=== PATIENT | male | born 1960 | race Caucasian/White ===

== ENCOUNTER → 2017-02-10 | Outpatient (CLI) | payer OTHER ==
--- NOTE | 2017-02-10 15:09 | RADIOLOGY REPORT (SQ) ---
EXAM DESCRIPTION: ANKLE RIGHT COMPLETE COMPLETED DATE/TIME: 02/10/2017 2:07 pm REASON FOR STUDY: PAIN IN RIGHT ANKLE AND JOINTS OF RIGHT FOOT M25.571 PAIN IN RIGHT ANKLE AND JOIN TS OF RIGHT FOOT COMPARISON: None. NUMBER OF VIEWS: Three views. TECHNIQUE: AP, lateral, and oblique radiographic images acquired of the right ankle. LIMITATIONS: None. FINDINGS: MINERALIZATION: Normal. BONES: No acute fracture or dislocation. Radiolucency in the medial talar dome. JOINTS: No effusions. SOFT TISSUES: No soft tissue swelling. No foreign body. OTHER: No other significant finding. Prominent plantar calcaneal spur. IMPRESSION: RADIOLUCENCY IN THE MEDIAL TALAR DOME, POSSIBLY AN OSTEOCHONDRAL DEFECT. RECOMMEND [facility] MRI. TECHNICAL DOCUMENTATION: JOB ID: [id number]- All Rights Reserved
== END ==
LOC: OD 13:40
PROVIDERS: ATTEND Family Medicine
DX: M25.571 Pain in right ankle and joints of right foot (principal)

== ENCOUNTER 2017-03-24 15:36 | Emergency (ER) | payer OTHER ==
--- NOTE | 2017-03-24 19:31 | ER Document Report ---
ED Hand/Wrist Injury - General Mode of Arrival: Ambulatory Information source: Patient TRAVEL OUTSIDE OF THE [place] IN LAST 30 DAYS: No - HPI Patient complains to provider of: Injury to left 5th digit Injury to: Small finger Onset: This afternoon Context: Other - see notes above <VIGNESH AJ - Last Filed: 03/24/17 21:37> <ALAN SANCHEZ - Last Filed: 03/25/17 04:53> - General Chief Complaint: Hand Injury Stated Complaint: LEFT PINKY PAIN, SWELLING Time Seen by Provider: 03/24/17 19:30 Notes: 56-year-old male presents to the ED complaining of left fifth digit injury that occurred earlier this afternoon. Patient reports that he went to the immediate care in [place], [place] where they performed an x-ray. Patient was told to come to the ED for further assessment. Patient explains that he dropped something in a cupboard and went to quickly grab it. When pulling his hand out of the cupboard, he caught his left fifth digit and believes that he dislocated it. ( VIGNESH AJ) - Related Data Allergies/Adverse Reactions: No Known Allergies Allergy (Unverified 03/24/17 20:57) Past Medical History - General Information source: Patient - Social History Smoking Status: Former Smoker Chew tobacco use (# tins/day): No Frequency of alcohol use: Occasional Drug Abuse: None Family History: Reviewed & Not Pertinent Patient has suicidal ideation: No Patient has homicidal ideation: No - Past Medical History Cardiac Medical History: Reports: Hx Hypercholesterolemia, Hx Hypertension Renal/ Medical History: Denies: Hx Peritoneal Dialysis Past Surgical History: Reports: Hx Orthopedic Surgery - back surg 2003 <VIGNESH AJ - Last Filed: 03/24/17 21:37> Review of Systems - Review of Systems Constitutional: No symptoms reported EENT: No symptoms reported Cardiovascular: No symptoms reported Respiratory: No symptoms reported Gastrointestinal: No symptoms reported Genitourinary: No symptoms reported Male Genitourinary: No symptoms reported Musculoskeletal: See HPI, Other - left fifth digit injury with associated pain Skin: No symptoms reported Hematologic/Lymphatic: No symptoms reported Neurological/Psychological: No symptoms reported -: Yes All other systems reviewed and negative <VIGNESH AJ - Last Filed: 03/24/17 21:37> Physical Exam - General General appearance: Alert In distress: None - HEENT Head: Normocephalic, Atraumatic Eyes: Normal Extraocular movements intact: Yes Pupils: PERRL - Respiratory Respiratory status: No respiratory distress - Cardiovascular Rhythm: Regular - Abdominal Inspection: Normal - Back Back: Normal - Extremities General upper extremity: Normal ROM. No: Normal inspection - see hand exam below General lower extremity: Normal inspection, Normal ROM Hand: Tender - PIP of left 5th digit, Deformity - Obvious deformity to the PIP joint of the left 5th digit., Swelling - PIP of left 5th digit, Other - Unable to extend distal left 5th digit. No: Normal - Neurological Neuro grossly intact: Yes Cognition: Normal Orientation: AAOx4 Bhavin Coma Scale Eye Opening: Spontaneous [place] Coma Scale Verbal: Oriented Bhavin Coma Scale Motor: Obeys Commands Bhavin Coma Scale Total: 15 Speech: Normal - Psychological Associated symptoms: Normal affect, Normal mood - Skin Skin Temperature: Warm Skin Moisture: Dry Skin Color: Normal <VIGNESH AJ - Last Filed: 03/24/17 21:37> Course <VIGNESH AJ - Last Filed: 03/24/17 21:37> - Diagnostic Test Radiology reviewed: Image reviewed, Reports reviewed <ALAN SANCHEZ - Last Filed: 03/25/17 04:53> - Re-evaluation Re-evalutation: 03/24/17 21:09 Patient updated on results and given a copy of his X-ray. (VIGNESH AJ) Patient is left-hand dominant. Presents with deformity of left pinky finger. Had been told at urgent care that it was dislocated. Finger does look dislocated and also fractured with likely avulsion due to the inability of the patient to extend his DIP. Reduced at bedside. X-ray ordered postreduction. Patient with fracture dislocation. Patient states that overall his finger looks better. Finger will be placed in hyperextension of the DIP. Patient is to follow-up with hand surgery. Understands agrees with plan. Stable for discharge. (ALAN SANCHEZ) - Vital Signs Vital signs: Temp Pulse Resp BP Pulse Ox 98.7 F 84 18 153/94 H 99 03/24/17 21:41 03/24/17 21:41 03/24/17 21:41 03/24/17 21:41 03/24/17 21:41 Procedures - Immobilization Left 5th digit Pre-Proc Neuro Vasc Exam: Normal Immobilizer type: Finger splint (Static) Performed by: RN Post-Proc Neuro Vasc Exam: Normal Alignment checked and good: Yes - Joint Reduction/Fracture Care Left 5th digit Consent obtained: Yes Conscious sedation: No Pre-procedure NV exam: Yes Fracture: Closed Post-procedure NV exam: Yes Post-reduction x-ray: Joint reduced Reduction attempts: 1 Complications: No <ALAN SANCHEZ - Last Filed: 03/25/17 04:53> Discharge <VIGNESH AJ - Last Filed: 03/24/17 21:37> <ALAN SANCHEZ - Last Filed: 03/25/17 04:53> - Discharge Clinical Impression: Dislocation, finger closed Finger fracture, left Qualifiers: Encounter type: initial encounter Finger: little finger Fracture type: closed Phalanx: proximal Fracture alignment: displaced Qualified Code(s): S62.617A - Displaced fracture of proximal phalanx of left little finger, initial encounter for closed fracture Condition: Stable Disposition: HOME, SELF-CARE Instructions: Finger Dislocation ([facility]), Avulsion Fracture ([facility]), Splint Precautions ([facility]), Temporary Splint ([facility]) Prescriptions: Oxycodone HCl/Acetaminophen [Percocet 5-325 mg Tablet] 1 - 2 tab PO TIDP PRN # 15 tablet PRN Reason: Referrals: DORY RODRIGUEZ DO [Primary Care Provider] - Follow up as needed DALI WINKLER DO [ACTIVE STAFF] - Follow up in 3-5 days Scribe Attestation: 03/25/17 04:53 I personally performed the services described in the documentation, reviewed and edited the documentation which was dictated to the scribe in my presence, and it accurately records my words and actions. (ALAN SANCHEZ) Scribe Documentation - Scribe Written by Nancy:: Nancy Lopez, [id number] acting as scribe for :: Rashmi <VIGNESH AJ - Last Filed: 03/24/17 21:37>
--- NOTE | 2017-03-24 20:37 | RADIOLOGY REPORT (SQ) ---
EXAM DESCRIPTION: HAND LEFT 3 VIEWS COMPLETED DATE/TIME: 03/24/2017 7:44 pm REASON FOR STUDY: evalaute injury of 5th digit COMPARISON: None. EXAM PARAMETERS: NUMBER OF VIEWS: Three views. TECHNIQUE: AP, lateral and oblique radiographic images acquired of the left hand. LIMITATIONS: None. FINDINGS: MINERALIZATION: Normal. BONES: 2.5 mm avulsion fracture from the palmar aspect of the middle phalanx at the level of the 5th PIP, there is also 3 mm of dorsal -lateral PIP joint displacement. . No other fracture or dislocati on. No worrisome bone lesions. JOINTS: No effusions. SOFT TISSUES: Mild soft tissue swelling. No foreign body. OTHER: No other significant finding. IMPRESSION: 2.5 mm avulsion fracture from the palmar aspect of the middle phalanx at the level of th e 5th PIP, there is also 3 mm of dorsal -lateral PIP joint displacement. TECHNICAL DOCUMENTATION: JOB ID: [id number] [employer]- All Rights Reserved
[2017-03-24] MEDS ORDERED: HYDROCODONE/ACETAMINOPHEN 5-325 MG 6 TAB/DSPK PO PRN (21:02)
[2017-03-24 21:42] VITALS: BP 153/94
== END 2017-03-24 21:43 | disposition home or self-care (01) ==
LOC: ER 15:36
PROC: 0PSVXZZ Reposition Left Finger Phalanx, External Approach (ICD-10-PCS; principal; 2017-03-24)
DX: S62.617A Displaced fracture of proximal phalanx of left little finger, initial encounter for closed fracture (principal); S63.259A Unspecified dislocation of unspecified finger, initial encounter; M79.645 Pain in left finger(s); M79.89 Other specified soft tissue disorders; Z87.891 Personal history of nicotine dependence; X58.XXXA Exposure to other specified factors, initial encounter
CPT/HCPCS: 99283

== ENCOUNTER → 2018-01-17 | Outpatient (CLI) | payer OTHER ==
--- NOTE | 2018-01-17 11:33 | RADIOLOGY REPORT (SQ) ---
EXAM DESCRIPTION: LUMBAR SPINE COMPLETE COMPLETED DATE/TIME: 01/17/2018 10:30 am REASON FOR STUDY: LUMBAR RADICULOPATHY M54.16 RADICULOPATHY, LUMBAR REGION COMPARISON: None. NUMBER OF VIEWS: Five views including obliques. TECHNIQUE: AP, lateral, oblique, and sacral radiographic images acquired of the lumbar spine. LIMITATIONS: None. FINDINGS: MINERALIZATION: Normal. SEGMENTATION: Normal. No transitional anatomy. ALIGNMENT: Minimal levoscoliosis. VERTEBRAE: Maintained height. No fracture or worrisome bone lesion. DISCS: Disc spaces are narrowed from L3-S1. Small marginal osteophytes are present. POSTERIOR ELEMENTS: Pedicles and facets are intact. No pars defect or posterior arch defects. HARDWARE: None in the spine. PARASPINAL SOFT TISSUES: Normal. PELVIS: Intact as visualized. No fractures or worrisome bone lesions. SI joints intact. OTHER: No other significant finding. IMPRESSION: Degenerative disc disease and mild spondylosis. TECHNICAL DOCUMENTATION: JOB ID: [id number] [employer]- All Rights Reserved Reading location - IP/workstation name: [email or web address]
== END ==
LOC: OD 09:35
PROVIDERS: ATTEND Family Medicine
DX: M51.16 Intervertebral disc disorders with radiculopathy, lumbar region (principal)
CPT/HCPCS: 72110

== ENCOUNTER 2018-07-10 15:42 | Emergency (ER) | payer OTHER ==
--- NOTE | 2018-07-10 16:09 | ER Document Report ---
ED Medical Screen (RME) - General Chief Complaint: Low Back Pain Stated Complaint: LEG/FOOT PAIN/NUMBNESS Time Seen by Provider: 07/10/18 15:48 TRAVEL OUTSIDE OF THE [place] IN LAST 30 DAYS: No - HPI Patient complains to provider of: leg numbness Onset: Other - 58-year-old man who presents with complaint of left leg numbness. He has a history of a discectomy in the past. Has now numbness on the lateral aspect of his left leg from the middle of the foot and toes all the way up the leg with then tingling posteriorly up the hamstring. Has seen a spine surgeon before for a different issue but this is a new deficits since yesterday. Is not gotten any better with time. Denies any trauma, denies any urinary retention, denies any fevers or chills or bowel incontinence. - Related Data Allergies/Adverse Reactions: No Known Allergies Allergy (Unverified 03/24/17 20:57) Past Medical History - Social History Chew tobacco use (# tins/day): No Frequency of alcohol use: Occasional Drug Abuse: None - Past Medical History Cardiac Medical History: Reports: Hx Hypercholesterolemia, Hx Hypertension Renal/ Medical History: Denies: Hx Peritoneal Dialysis Past Surgical History: Reports: Hx Orthopedic Surgery - back surg 2004, hand, Hx Tonsillectomy Physical Exam - Vital signs Vitals: Temp Pulse Resp BP Pulse Ox 98.5 F 103 H 20 167/76 H 100 07/10/18 15:56 07/10/18 15:56 07/10/18 15:56 07/10/18 15:56 07/10/18 15:56 Course - Re-evaluation Re-evalutation: 07/10/18 16:09 Numbness and tingling in the L5-S1 distribution, new hard neuro deficit. Will obtain MRI.I have greeted and performed a rapid initial assessment of this patient. A comprehensive ED assessment and evaluation of the patient, analysis of test results and completion of the medical decision making process will be conducted by additional ED providers - Vital Signs Vital signs: Temp Pulse Resp BP Pulse Ox 98.5 F 103 H 20 167/76 H 100 07/10/18 15:56 07/10/18 15:56 07/10/18 15:56 07/10/18 15:56 10/21/18 15:56 Doctor's Discharge - Discharge Referrals: DORY RODRIUGEZ, [Primary Care Provider] - Follow up as needed
[2018-07-10] MEDS ORDERED: MORPHINE SULFATE 10 MG/ML INJ IM ONE (17:42)
--- NOTE | 2018-07-10 17:44 | ER Document Report ---
ED General - General Chief Complaint: Low Back Pain Stated Complaint: LEG/FOOT PAIN/NUMBNESS Time Seen by Provider: 07/10/18 15:48 Mode of Arrival: Ambulatory Information source: [facility], [facility] Records Notes: 58-year-old male with hypertension, hyperlipidemia, chronic back pain presents with complaint of increasing left lower back pain with new numbness to the lateral aspect of his left foot. Patient states that he is chronically in pain but the pain has worsened over the last 3 days. He states that he does experience chronic numbness of his left outer leg and left second and third toes but since yesterday has now developed numbness on the lateral aspect of the left foot. He denies any new injury, saddle anesthesia, urinary itching, fecal incontinence, fever, history of IV drug use. TRAVEL OUTSIDE OF THE [place] IN LAST 30 DAYS: No - Related Data Allergies/Adverse Reactions: No Known Allergies Allergy (Unverified 03/24/17 20:57) Past Medical History - General Information source: Patient, [facility] Records - Social History Smoking Status: Former Smoker Chew tobacco use (# tins/day): No Frequency of alcohol use: Occasional Drug Abuse: None Lives with: Spouse/Significant other Family History: Reviewed & Not Pertinent Patient has suicidal ideation: No Patient has homicidal ideation: No - Past Medical History Cardiac Medical History: Reports: Hx Hypercholesterolemia, Hx Hypertension Renal/ Medical History: Denies: Hx Peritoneal Dialysis Past Surgical History: Reports: Hx Orthopedic Surgery - back surg 2004, hand, Hx Tonsillectomy Review of Systems - Review of Systems Constitutional: denies: Fever, Weakness, Recent illness EENT: denies: Blurred vision, Difficulty swallowing Cardiovascular: denies: Chest pain, Dizziness, Lightheaded Respiratory: denies: Short of breath Gastrointestinal: denies: Nausea, Vomiting Genitourinary: denies: Dysuria, Flank pain Male Genitourinary: No symptoms reported Musculoskeletal: Back pain Skin: denies: Rash Hematologic/Lymphatic: denies: Easy bleeding Neurological/Psychological: Numbness. denies: Weakness, Gait changes, Lost consciousness, Headaches -: Yes All other systems reviewed and negative Physical Exam - Vital signs Vitals: Temp Pulse Resp BP Pulse Ox 98.5 F 103 H 20 167/76 H 100 07/10/18 15:56 07/10/18 15:56 07/10/18 15:56 07/10/18 15:56 07/10/18 15:56 - Notes Notes: PHYSICAL EXAMINATION: GENERAL: Well-appearing, well-nourished and in no acute distress. HEAD: Atraumatic, normocephalic. EYES: Pupils equal round and reactive to light, extraocular movements intact, sclera anicteric, conjunctiva are normal. ENT: Nares patent, oropharynx clear without exudates. Moist mucous membranes. NECK: Normal range of motion, supple without lymphadenopathy LUNGS: Breath sounds clear to auscultation bilaterally and equal. No wheezes rales or rhonchi. HEART: Regular rate and rhythm without murmurs ABDOMEN: Soft, nontender, nondistended abdomen. No guarding, no rebound. No masses appreciated. Musculoskeletal: Normal range of motion, no pitting or edema. No cyanosis. Neuro exam NEUROLOGICAL: Cranial nerves grossly intact. Normal speech, normal gait. Normal sensory, motor exams.Mental status; alert and oriented x3. Cranial nerves II through XII intact. Sensation intact to sharp/dull differentiation in all extremities. Motor; normal tone. No abnormal movements appreciated. No pronator drift. Strength tested and 5/5 in bilateral wrist flexion/extension , elbow flexion/extension, shoulder abduction, straight leg raise, knee flexion/ extension, ankle dorsiflexion/plantar flexion. Patient ambulates with a steady gait. Coordination; no ataxia. Finger to nose and heel to cote testing intact bilaterally.Reflexes; brachial radialis, biceps, and patellar reflexes within normal limits and symmetric bilaterally. Babinski with downgoing toes bilaterally. PSYCH: Normal mood, normal affect. SKIN: Warm, Dry, normal turgor, no rashes or lesions noted. Course - Re-evaluation Re-evalutation: 07/10/18 19:45 Presentation of a well appearing patient complaining of acute on chronic back pain. No rapid progression of symptoms, systemic symptoms including fevers, chills, weight loss, history of recent bacterial infection, bilateral symptoms, weakness, difficulty walking, urinary retention or bowel incontinence, personal history of cancer, immunosuppression, diabetes, known AAA, or history of IV drug use. Exam is without point tenderness over vertebral bodies, pulsatile abdominal mass, and patient has symmetric and intact lower extremity strength, sensation, and reflexes without clonus. 2+ symmetric medial malleolar and dorsalis pedis pulses Based on history and physical, I have a very low suspicion of a concerning etiology of pain including epidural compression syndrome, spinal infection, cauda equina, transverse myelitis, malignancy, abdominal aortic aneurysm, renal colic, acute lower extremity . Due to absence of concerning risk factors in history and physical as well as absence of rapidly progressive, severe, or bilateral symptoms, will defer imaging at this point. Plan to manage conservatively with outpatient analgesia, analgesia, and physical therapy. - Acetaminophen 650 q 4 + ibuprofen 600 q 6 - Continue normal daily activities as tolerated by pain - Provide with standard musculoskeletal back pain exercise instructions - Instruct to follow up with primary care provider if symptoms not improving - Provide careful return precautions and concerning symptoms to watch for. 07/12/18 12:34 - Vital Signs Vital signs: Temp Pulse Resp BP Pulse Ox 98.4 F 94 18 168/95 H 99 07/10/18 20:00 07/10/18 20:00 07/10/18 20:00 07/10/18 20:00 07/10/18 20:00 - Diagnostic Test Radiology reviewed: Image reviewed, Reports reviewed Discharge - Discharge Clinical Impression: Elevated blood pressure reading, Left fifth toe numbness Low back pain Qualifiers: Chronicity: chronic Back pain laterality: left Sciatica presence: with sciatica Sciatica laterality: sciatica of left side Qualified Code(s): M54.42 - Lumbago with sciatica, left side Degenerative disc disease Qualifiers: Spinal region: lumbosacral Qualified Code(s): M51.37 - Other intervertebral disc degeneration, lumbosacral region Condition: Good Disposition: HOME, SELF-CARE Instructions: Low Back Pain ([facility]) Additional Instructions: You have been seen in the Emergency Department (ED) today for back pain. Your workup and exam have not shown any acute abnormalities and you are likely suffering from muscle strain or possible problems with your discs, but there is no treatment that will fix your symptoms at this time. Please take the naproxen that has been prescribed as directed. You should also purchase a local lidocaine cream such as "aspercreme with lidocaine" and use per bottle instructions to the affected area. Apply heat to the area as often as you are able. Continue to keep active and avoid prolonged periods of bed rest. Please follow up with your doctor as soon as possible regarding today's ED visit and your back pain. Return to the ED for worsening back pain, fever, weakness or numbness of either leg, or if you develop either (1) an inability to urinate or have bowel movements, or (2) loss of your ability to control your bathroom functions (if you start having "accidents"), or if you develop other new symptoms that concern you.concern you. Prescriptions: Hydrocodone/Acetaminophen [[place] 5-325 mg Tablet] 1 tab PO Q6H #12 tablet Prednisone [Deltasone 20 mg Tablet] 3 tab PO DAILY 5 Days #15 tablet Referrals: DORY RODRIGUEZ DO [Primary Care Provider] - Follow up as needed
--- NOTE | 2018-07-10 17:47 | RADIOLOGY REPORT (SQ) ---
EXAM DESCRIPTION: MRI LUMBAR SPINE WITHOUT COMPLETED DATE/TIME: 07/10/2018 5:11 pm REASON FOR STUDY: numbness left leg- L5 S1 distribution COMPARISON: Lumbar spine plain films 01/17/2018 TECHNIQUE: Sagittal and Axial imaging includes T1, T2, STIR and gradient echo sequences. Coronal T2/ HASTE imaging. LIMITATIONS: None FINDINGS: VISUALIZED UPPER ABDOMEN: Limited evaluation. No acute or suspicious findings suggested. SEGMENTATION: No transitional anatomy. The lowest well-developed disc space is labeled L5-S1. ALIGNMENT: Anatomic. VERTEBRAE: Intact. BONE MARROW: Normal. No marrow replacement or reactive changes. DISC SIGNAL: Decreased disc space height at L4-5 and L5-S1. Diffuse decreased T2 weighted interverte bral lumbar disc signal. POSTERIOR ELEMENTS: Generally intact. No pars defect evident. HARDWARE: Minimal ferromagnetic artifact lower lumbar soft tissues CORD AND CONUS: Normal in size and signal intensity. Conus at the L2 level. SOFT TISSUES: No aortic aneurysm seen. No bulky retroperitoneal adenopathy or mass. No paraspinal mas s or fluid. T11-12: At the upper edge of the field of view. Broad diffuse posterior disc bulging is present wit h moderate bilateral facet and ligament hypertrophy. Mild central canal stenosis. No significant fo raminal narrowing. T12-L1: Unremarkable L1-L2: No central or foraminal stenosis. Mild bilateral facet arthropathy. L2-L3: Moderate central canal stenosis results from broad diffuse posterior disc bulging and moderate bilateral facet and ligament hypertrophy. Mild mild right foraminal narrowing. Moderate left ronda inal narrowing. L3-L4: Mild central canal stenosis results from broad diffuse posterior disc bulging and moderate aleja ateral facet and ligament hypertrophy. Mild bilateral inferior foraminal narrowing. L4-L5: Mild central canal stenosis results from broad diffuse posterior disc bulging and moderate aleja ateral facet and ligament hypertrophy. Moderate right, mild left foraminal narrowing. L5-S1: Broad diffuse posterior disc bulge and mild bilateral facet and ligament hypertrophy is presen t. Moderate bilateral foraminal narrowing without definite exiting L5 nerve root impingement. SACRUM: Visualized upper sacrum intact. OTHER: No other significant findings. IMPRESSION: Diffuse degenerative changes as above TECHNICAL DOCUMENTATION: JOB ID: [id number]- All Rights Reserved Reading location - IP/workstation name: [email or web address]
[2018-07-10] MEDS ORDERED: PREDNISONE 20 MG TABLET PO ONE (19:45)
[2018-07-10 20:02] VITALS: BP 168/95
== END 2018-07-10 20:02 | disposition home or self-care (01) ==
LOC: ER 15:42
DX: M54.42 Lumbago with sciatica, left side (principal); M51.37 Other intervertebral disc degeneration, lumbosacral region; I10 Essential (primary) hypertension; R20.0 Anesthesia of skin; E78.5 Hyperlipidemia, unspecified; G89.29 Other chronic pain; Z87.891 Personal history of nicotine dependence
CPT/HCPCS: 99284; 96372; 72148; J2270; J7512

== ENCOUNTER → 2019-04-13 | Outpatient (CLI) | payer OTHER ==
--- NOTE | 2019-04-13 10:24 | RADIOLOGY REPORT (SQ) ---
EXAM DESCRIPTION: HIP LEFT AP/LATERAL COMPLETED DATE/TIME: 04/13/2019 9:23 am REASON FOR STUDY: PAIN IN LEFT HIP M25.552 PAIN IN LEFT HIP COMPARISON: None. NUMBER OF VIEWS: Two views. TECHNIQUE: AP pelvis and additional frog-leg view of the left hip. LIMITATIONS: None. FINDINGS: MINERALIZATION: Normal. LEFT HIP: No fracture or dislocation. Mild joint space narrowing with small osteophytes. No worriso me bone lesions. RIGHT HIP: No fracture or dislocation. Mild joint space narrowing with small osteophytes. No worris ome bone lesions. PUBIS AND ISCHIUM: No fracture. PELVIS: No fracture. SACRUM: No fracture or dislocation. No worrisome bone lesions. LOWER LUMBAR SPINE: No fracture or dislocation. No worrisome bone lesions. Degenerative disc disease . SOFT TISSUES: No findings. OTHER: No other significant finding. IMPRESSION: DEGENERATIVE CHANGES. NO RADIOGRAPHIC EVIDENCE OF ACUTE INJURY. TECHNICAL DOCUMENTATION: JOB ID: [id number] [employer]- All Rights Reserved Reading location - IP/workstation name: [email or web address]
== END ==
LOC: OD 09:00
PROVIDERS: ATTEND Family Medicine
DX: M25.552 Pain in left hip (principal)

== ENCOUNTER 2019-05-29 09:33 | Observation (INO) | payer OTHER ==
[2019-05-29] MEDS ORDERED: ADENOSINE INJ/PF 6 MG/2 ML SDV IV ONE (09:46)
[2019-05-29] MEDS ORDERED: ASPIRIN 81 MG TABLET, CHEWABLE PO ONE (09:53)
[2019-05-29] MEDS ORDERED: DILTIAZEM HCL INJ 25 MG/5 ML VIAL IV ONE (09:54)
--- NOTE | 2019-05-29 09:59 | ER Document Report ---
ED Cardiac - General Chief Complaint: Chest Tightness Stated Complaint: CHEST TIGHTNESS Time Seen by Provider: 05/29/19 09:53 Primary Care Provider: DORY RODRIGUEZ DO [Primary Care Provider] - Follow up as needed Notes: History of Present Illness Chief Complaint: [Palpitation History obtained from patient 59 years old male with a history of hypertension, hyperlipidemia, remote history of SVT, presents today with sudden onset of rapid heartbeat with a sensation of palpitation. It happened just prior to arrival. He also had a large cup of coffee prior to that. Denies any smoking. Diaphoretic, denies any chest pain. Denies any shortness of breath. But had a sensation of dizziness and lightheadedness. Was going on for the last 1 hour on and off. Denies any fever chills or other constitutional symptoms. Symptoms began: Today Onset: Gradual Timing: Constant, now gone Quality: "pain" Intensity: Moderate Location: Substernal Radiation: None Migration: None Aggravating factors: None Relieving factors: None Major PE risk factors: None Major aortic dissection risk factors: None Review of Systems: All other systems negative as reviewed. CONSTITUTIONAL No fever, No chills, No sweats. EYES No eye pain. ENT No URI symptoms, No sore throat, No ear pain. CARDIOVASCULAR + chest pain, No palpitations, No edema. RESPIRATORY No Cough, No SOB, No wheezing. GASTROINTESTINAL No abdominal pain, No nausea, No diarrhea, No vomiting, No GI Bleeding. GENITOURINARY No UTI symptoms. MUSCULOSKELETAL No back pain, No calf swelling, No calf pain. SKIN No Rash. NEUROLOGIC No Headache Physical Exam CONSTITUTIONAL Vital signs reviewed, Patient appears comfortable, Alert and oriented X 3, Normal stature. Diaphoretic. HEAD Atraumatic, Normocephalic. EYES Eyes are normal to inspection, No discharge from eyes, Extraocular muscles intact, Sclera are normal, Conjunctiva are normal. ENT Ears normal to inspection, Nose examination normal, Posterior pharynx normal, Mouth normal to inspection. NECK Normal ROM, No jugular venous distention, No meningeal signs, no carotid bruit. RESPIRATORY CHEST Chest is nontender, Breath sounds normal, No respiratory distress. CARDIOVASCULAR RRR, No murmurs, Normal S1 S2, No rub, No gallop. ABDOMEN Abdomen is nontender, No pulsatile masses, No other masses, Bowel sounds normal, No distension, No peritoneal signs, No hernias. BACK There is no CVA Tenderness, There is no tenderness to palpation, Normal inspection. UPPER EXTREMITY Inspection normal, No cyanosis, No clubbing, No edema, 2+ radial pulses. LOWER EXTREMITY Inspection normal, No cyanosis, No clubbing, No edema, No calf tenderness, 2+ femoral pulses. NEURO No focal motor deficits, No focal sensory deficits, Speech normal. SKIN Skin is warm, Skin is dry, Skin is normal color. LYMPHATIC No adenopathy in neck. PSYCHIATRIC Normal affect. TRAVEL OUTSIDE OF THE [place] IN LAST 30 DAYS: No - HPI Patient complains to provider of: Palpitations - Dictated - Related Data Allergies/Adverse Reactions: No Known Allergies Allergy (Verified 05/29/19 09:35) Past Medical History - Social History Smoking Status: Never Smoker Cigarette use (# per day): No Chew tobacco use (# tins/day): No Smoking Education Provided: No Frequency of alcohol use: Rare Drug Abuse: None Lives with: Family Family History: Reviewed & Not Pertinent - Past Medical History Cardiac Medical History: Reports: Hx Hypercholesterolemia, Hx Hypertension Renal/ Medical History: Denies: Hx Peritoneal Dialysis Past Surgical History: Reports: Hx Orthopedic Surgery - back surg 2004, hand, Hx Tonsillectomy Review of Systems - Review of Systems Notes: Dictated Physical Exam - Vital signs Vitals: Pulse Ox 99 05/29/19 09:48 - Notes Notes: Dictated Course - Re-evaluation Re-evalutation: 05/29/19 11:58 He was given Ativan total of 2 mg, IV fluid. Case was discussed with hospital service and currently being admitted - Vital Signs Vital signs: Temp Pulse Resp BP Pulse Ox 13 135/83 H 97 05/29/19 10:30 05/29/19 10:30 05/29/19 10:30 - Laboratory Result Diagrams: 05/29/19 09:50 05/29/19 09:50 - Diagnostic Test Radiology reviewed: Reports reviewed - Reported by radiologist as unremarkable - EKG Interpretation by Me Rate: Tachycardia - Supraventricular tachycardia at 215 bpm, normal axis. Additional EKG results interpreted by me: 05/29/19 11:56 Second EKG showed sinus rhythm at 99 bpm normal axis no acute ST elevation ST depression T wave inversion noted. Discharge - Discharge Clinical Impression: SVT (supraventricular tachycardia) Condition: Fair Disposition: HOME, SELF-CARE Admitting Provider: Jimbo (Hospitalist) Unit Admitted: Telemetry Referrals: DORY RODRIGUEZ DO [Primary Care Provider] - Follow up as needed
[2019-05-29 10:11] LABS: HEMATOCRIT 48.2 % (37.9-51.0); HEMOGLOBIN 16.3 g/dL (13.5-17.0); MEAN CORPUSCULAR HGB CONC 33.9 g/dL (32.0-36.0); MEAN CORPUSCULAR VOLUME 91 fl (80-97); PLATELET COUNT 187 10^3/uL (150-450); RED BLOOD COUNT 5.27 10^6/uL (4.35-5.55); WHITE BLOOD COUNT 6.3 10^3/uL (4.0-10.5)
[2019-05-29] MEDS ORDERED: LORAZEPAM INJ 2 MG/1 ML VIAL IV ONE ×2 (10:24→11:51)
[2019-05-29] MEDS ORDERED: NORMAL SALINE 1000 ML 1,000 ML IV ONE (10:24)
[2019-05-29 10:26] LABS: ALBUMIN 4.3 g/dL (3.5-5.0); ALKALINE PHOSPHATASE 78 U/L (38-126); ANION GAP 9 (5-19); ASPARTATE AMINO TRANSFERASE 33 U/L (17-59); BILIRUBIN,DIRECT 0.3 mg/dL (0.0-0.4); BILIRUBIN,TOTAL 0.5 mg/dL (0.2-1.3); BLOOD UREA NITROGEN 18 mg/dL (7-20); CALCIUM 9.5 mg/dL (8.4-10.2); CARBON DIOXIDE 27 mmol/L (22-30); CHLORIDE 104 mmol/L (98-107); CREATINE KINASE 115 U/L (55-170); GLUCOSE 103 mg/dL (75-110); POTASSIUM 4.9 mmol/L (3.6-5.0); TOTAL PROTEIN 6.8 g/dL (6.3-8.2)
--- NOTE | 2019-05-29 10:27 | RADIOLOGY REPORT (SQ) ---
EXAM DESCRIPTION: CHEST SINGLE VIEW COMPLETED DATE/TIME: 05/29/2019 10:10 am REASON FOR STUDY: Palpitation COMPARISON: None. NUMBER OF VIEWS: One view. TECHNIQUE: Single frontal radiographic image of the chest acquired. LIMITATIONS: None. FINDINGS: LUNGS AND PLEURA: Stable appearance. MEDIASTINUM AND HILAR STRUCTURES: Stable heart size and mediastinal structures. HEART AND VASCULAR STRUCTURES: Stable appearance. SUPPORT DEVICES: Appropriate location without change. BONES: No acute findings. OTHER: No other significant finding. IMPRESSION: STABLE APPEARANCE OF THE CHEST. SUPPORT DEVICES UNCHANGED. TECHNICAL DOCUMENTATION: JOB ID: [id number] [place] [employer]- All Rights Reserved Reading location - IP/workstation name: [email or web address]
[2019-05-29 10:39] LABS: TROPONIN I < 0.012 ng/mL
[2019-05-29 10:51] LABS: ABSOLUTE LYMPHOCYTES# (MANUAL) 2.1 10^3/uL (0.5-4.7); ABSOLUTE MONOCYTES # (MANUAL) 0.4 10^3/uL (0.1-1.4); ANISOCYTOSIS SLIGHT; BASOPHILS % (MANUAL) 2 % (0-2); EOSINOPHILS % (MANUAL) 2 % (0-6); LYMPHOCYTES % (MANUAL) 26 % (13-45); MONOCYTES % (MANUAL) 6 % (3-13); PLATELET COMMENT ADEQUATE; SEGMENTED NEUTROPHILS % (MAN) 56 % (42-78); TOTAL CELLS COUNTED 100
[2019-05-29] MEDS ORDERED: DILTIAZEM HCL INJ 25 MG/5 ML VIAL ONE (11:49)
[2019-05-29] MEDS ORDERED: METOPROLOL TARTRATE PF/INJ 5 MG/5 ML SDV IV ONE (12:40)
--- NOTE | 2019-05-29 12:52 | PDOC H&P ---
History of Present Illness Admission Date/PCP: DORY EDUARDO DO Patient complains of: Rapid heart rate with lightheadedness and dizziness History of Present Illness: MICHOACANO ARAUJO is a 59 year old male with a history of hypertension and hyperlipidemia as well as one previous episode of SVT many years ago presents with lightheadedness, dizziness and rapid heart rate. The patient was having his coffee and all of a sudden felt lightheaded. He could feel that his heart rate was increased. He presented to the emergency department. On telemetry his heart rate was found to be 250. He received 1 dose of adenosine and 2 intravenous doses of diltiazem. This has slowed his heart rate During this encounter his heart rate is still between 100 and 125. He is extremely anxious. He was referred to the hospital service for admission. He is not happy about the admission. It does seem like he is under some stress. Past Medical History Cardiac Medical History: Reports: Hyperlipidema, Hypertension, Other - SVT Denies: Atrial Fibrillation, Congestive Heart Failure, Coronary Artery Disease Pulmonary Medical History: Reports: None, Other - Former smoker EENT Medical History: Reports: Ears - Decreased hearing right ear. Denies tinnitus. Cannot hear in a crowd. Denies: Cataracts, Eyes, Nose, Throat Neurological Medical History: Denies: Hemorrhagic CVA, Ischemic CVA, Migraine, Seizures Endocrine Medical History: Denies: Diabetes Mellitus Type 2, Hyperthyroidism, Hypothyroidism Renal/ Medical History: Denies: Chronic Kidney Disease, Nephrolithiasis Malignancy Medical History: Reports: None GI Medical History: Reports: Gastroesophageal Reflux Disease - Intermittent, Peptic Ulcer Disease, Other - History of gastric ulcer with occasional reflux Denies: Cirrhosis, Diverticulitis, Hepatitis Musculoskeltal Medical History: Reports: Arthritis, Other - Degenerative disc disease with fusion Skin Medical History: Denies: Eczema, Psoriasis Psychiatric Medical History: Denies: Alcohol Dependency, Substance Abuse, Tobacco Dependency Psychiatric History Note: The patient is under some stress lately. Traumatic Medical History: Reports: None Hematology: Denies: Anemia, Bleeding Tendencies Infectious Medical History: Reports: None Past Surgical History Past Surgical History: Reports: Orthopedic Surgery - back surg 2003, right hand surgery years ago, Tonsillectomy Social History Information Source: Patient Lives with: Family Smoking Status: Former Smoker Frequency of Alcohol Use: Occasional Hx Recreational Drug Use: No Drugs: None Hx Prescription Drug Abuse: No Past Social History Note: He works as a manager mechanical maintenance - Advance Directive Resuscitation Status: Full Code Surrogate healthcare decision maker:: He does not have a healthcare proxy or living well. His is the designated decision maker. Family History Family History: Hypertension, Other - Dementia Parental Family History Reviewed: Yes Children Family History Reviewed: Yes Sibling(s) Family History Reviewed.: Yes Medication/Allergy Allergies/Adverse Reactions: No Known Allergies Allergy (Verified 05/29/19 09:35) Review of Systems Constitutional: ABSENT: anorexia, chills, fatigue, fever(s), headache(s) Eyes: ABSENT: visual disturbances Ears: PRESENT: hearing changes - Decreased hearing right ear Nose, Mouth, and Throat: ABSENT: headache(s), mouth pain, sore throat Cardiovascular: PRESENT: edema - Trace pitting edema lower legs, palpitations. ABSENT: chest pain, dyspnea on exertion Respiratory: ABSENT: cough, hemoptysis, sputum Gastrointestinal: ABSENT: abdominal pain, constipation, diarrhea, dysphagia, nausea, vomiting Genitourinary: PRESENT: nocturia - Occasional. ABSENT: dysuria, hematuria Musculoskeletal: PRESENT: back pain - Chronic. ABSENT: deformity, joint swelling Integumentary: ABSENT: diaphoresis, erythema, lesions, pruritus, wounds Neurological: ABSENT: abnormal gait, abnormal speech, confusion, focal weakness, frequent falls, memory loss, restless legs, tremor(s) Psychiatric: PRESENT: anxiety. ABSENT: depression Endocrine: ABSENT: cold intolerance, heat intolerance, polydipsia, polyuria Hematologic/Lymphatic: ABSENT: easy bruising, lymphadenopathy Allergic/Immunologic: ABSENT: seasonal rhinorrhea Physical Exam Vital Signs: Temp Pulse Resp BP Pulse Ox 18 126/87 H 97 05/29/19 12:01 05/29/19 11:35 05/29/19 12:01 Intake & Output 05/28/19 05/29/19 05/30/19 06:59 06:59 06:59 Intake Total 1000 Balance 1000 General appearance: PRESENT: cooperative, mild distress, well-developed Head exam: PRESENT: atraumatic, normocephalic Eye exam: PRESENT: conjunctiva pink, EOMI. ABSENT: conjunctival injection, scleral icterus Ear exam: PRESENT: normal external ear exam. ABSENT: bleeding, drainage Mouth exam: PRESENT: moist, neck supple, tongue midline Teeth exam: ABSENT: dental caries, dental tenderness Neck exam: PRESENT: full ROM. ABSENT: carotid bruit, JVD, lymphadenopathy Respiratory exam: PRESENT: clear to auscultation aleja, symmetrical, unlabored. ABSENT: accessory muscle use, prolonged expiratory phas, rales, rhonchi, tachypnea, wheezes Cardiovascular exam: PRESENT: +S1, +S2, tachycardia Pulses: PRESENT: normal radial pulses, normal dorsalis pedis pul GI/Abdominal exam: PRESENT: normal bowel sounds, soft. ABSENT: distended, guarding, tenderness Rectal exam: PRESENT: deferred Gentrourinary exam: ABSENT: indwelling catheter Extremities exam: PRESENT: full ROM, pedal edema. ABSENT: joint swelling, tenderness Musculoskeletal exam: PRESENT: ambulatory, normal inspection. ABSENT: deformity Neurological exam: PRESENT: alert, awake, oriented to person, oriented to place, oriented to time, oriented to situation, CN II-XII grossly intact. ABSENT: aphasic Psychiatric exam: PRESENT: anxious - Appears slightly anxious, appropriate affect, other - Clearly frustrated that he needs to stay overnight. ABSENT: agitated Focused psych exam: ABSENT: delusional, restlessness Skin exam: PRESENT: dry, normal color, warm, other - Tattoo present. ABSENT: r efren Results Laboratory Results: 05/29/19 09:50 05/29/19 09:50 05/29/19 05/29/19 09:50 09:50 WBC 6.3 RBC 5.27 Hgb 16.3 Hct 48.2 MCV 91 MCH 31.0 MCHC 33.9 RDW 14.0 Plt Count 187 Seg Neutrophils % Not Reportable Sodium 139.7 Potassium 4.9 Chloride 104 Carbon Dioxide 27 Anion Gap 9 BUN 18 Creatinine 1.03 Est GFR ( Amer) > 60 Glucose 103 Calcium 9.5 Total Bilirubin 0.5 AST 33 Alkaline Phosphatase 78 Total Protein 6.8 Albumin 4.3 05/29/19 05/29/19 09:50 09:50 Creatine Kinase 115 CK-MB (CK-2) 2.00 Troponin I < 0.012 Impressions: Chest X-Ray 05/29/19 09:53 IMPRESSION: STABLE APPEARANCE OF THE CHEST. SUPPORT DEVICES UNCHANGED. Assessment and Plan - Diagnosis (1) SVT (supraventricular tachycardia) Is this a current diagnosis for this admission?: Yes Plan: 05/29/2019-the patient recalls that this is happened once before. He saw Dr. Felton and had an echocardiogram and I believe the stress test. He was asked to wear an event recorder but was unable to coordinate with this. He drinks coffee regularly and has not had an episode like this in 3 to 4 years. During the episode he did not experience any chest pain or shortness of breath. In the emergency department he was given adenosine and then 2 doses of IV diltiazem. His rate is improved but he is still between 101 and 125 mostly. He is not short of breath and is resting comfortably. He certainly is anxious and this could be contributing to his tachycardia as well. We will admit the patient to telemetry. I will start with 60 mg of Cardizem every 6 hours. We will continue his lisinopril and atorvastatin. He will be on telemetry overnight. We will admit for observation status at this time. (2) Hypertension Qualifiers: Hypertension type: essential hypertension Qualified Code(s): I10 - Essential (primary) hypertension Is this a current diagnosis for this admission?: Yes Plan: 05/29/2018-the patient's blood pressure is stable right now. With the addition of diltiazem we may need to decrease the lisinopril. We will monitor the patient on telemetry. (3) Hypercholesterolemia Is this a current diagnosis for this admission?: Yes Plan: 05/29/2019-he has a history of hyperlipidemia. We will continue his atorvastatin 10 mg daily. (4) Chronic back pain Qualifiers: Back pain location: low back pain Back pain laterality: midline Sciatica presence: without sciatica Qualified Code(s): M54.5 - Low back pain; G89.29 - Other chronic pain Is this a current diagnosis for this admission?: Yes Plan: 05/29/2019-the patient has had a discectomy and fusion L4-L5-S1. He still has chronic back pain. He also reports shoulder pain. Dr. Eduardo manages his pain. We will continue his tramadol 50 mg 3 times a day, Lyrica 25 mg 3 times a day and meloxicam 10 mg daily. With his history of gastric ulcer the NSAID certainly has some risk. His hypertension also is an issue. He has been on this medication and I am not going to change anything today but will defer to Dr. Eduardo. (5) History of peptic ulcer disease Is this a current diagnosis for this admission?: Yes Plan: He is not on any proton pump inhibitors or H2 blockers. I will administer Pepcid during his hospitalization. Because of this he is not on aspirin daily. Enteric-coated aspirin 81 mg daily would be of benefit but I will defer to Dr. Eduardo. - Time Time Spent with patient: 35 or more minutes Medications reviewed and adjusted accordingly: Yes Anticipated discharge: Home Within: within 48 hours
[2019-05-29] MEDS ORDERED: ACETAMINOPHEN 325 MG TABLET PO PRN (13:09)
[2019-05-29] MEDS ORDERED: MAGNESIUM HYDROXIDE SUSP 30 ML UDCUP PO PRN (13:09)
[2019-05-29] MEDS ORDERED: MAG HYDROX/AL HYDROX/SIMETH SUSP 30 ML UDCUP PO PRN (13:09)
[2019-05-29] MEDS ORDERED: METOPROLOL TARTRATE PF/INJ 5 MG/5 ML SDV IV PRN (13:21)
[2019-05-29] MEDS ORDERED: DILTIAZEM HCL 60 MG TABLET PO ONE (13:22)
[2019-05-29] MEDS: ENOXAPARIN SODIUM INJ 40 MG/0.4 ML DISP.SYRIN SUBCUT SCH (14:08)
--- NOTE | 2019-05-29 14:44 | EKG REPORT ---
SEVERITY:- OTHERWISE NORMAL ECG - SINUS RHYTHM LOW VOLTAGE IN FRONTAL LEADS : Confirmed by: Alyssa Madsen MD 29-May-2019 14:43:20
--- NOTE | 2019-05-29 14:44 | EKG REPORT ---
SEVERITY:- ABNORMAL ECG - SINUS RHYTHM RAA, CONSIDER BIATRIAL ABNORMALITIES : Confirmed by: Alyssa Madsen MD 29-May-2019 14:43:26
--- NOTE | 2019-05-29 14:44 | EKG REPORT ---
SEVERITY:- ABNORMAL ECG - SUPRAVENTRICULAR TACHYCARDIA PROBABLE INFERIOR INFARCT, OLD : Confirmed by: Alyssa Madsen MD 29-May-2019 14:43:38
[2019-05-29] MEDS: PREGABALIN 25 MG CAPSULE PO SCH ×2 (15:15→19:36)
[2019-05-29] MEDS: TRAMADOL HCL 50 MG TABLET PO SCH ×2 (15:15→19:35)
[2019-05-29] MEDS: DILTIAZEM HCL 60 MG TABLET PO SCH (19:35)
[2019-05-29] MEDS: FAMOTIDINE 20 MG TABLET PO SCH (21:03)
[2019-05-29] MEDS ORDERED: ATORVASTATIN CALCIUM 10 MG TABLET PO SCH (22:00)
--- NOTE | 2019-05-29 22:26 | ADVANCED CARE ---
- Diagnosis (1) SVT (supraventricular tachycardia) Diagnosis Current: Yes (2) Hypertension Diagnosis Current: Yes (3) Hypercholesterolemia Diagnosis Current: Yes (4) Chronic back pain Diagnosis Current: Yes (5) History of peptic ulcer disease Diagnosis Current: Yes Attendance: Discussion was held with the patient at bedside Resuscitation Status: Full Code Discussion: This is not the patient's first episode of paroxysmal supraventricular tachycardia. He does have hypertension and hyperlipidemia but has not had myocardial infarction. He is under a lot of stress. When this episode happened several years ago he initially followed up with cardiology but then did not wear an event recorder for any period of time. Since that time he does not report any episodes. He does state that if his heart rate is in the 110-120 region he cannot appreciate it. He does feel it when it is much higher. I explained the healthcare proxy document and most form in the admissions packet. I suggested he at least consider filling it out. I do not know how receptive he will be as he is frustrated that he has to stay in the hospital overnight. Care Planning Goals: Take into consideration his current comorbidities and set parameters and indications with regard to disposition in the event of a catastrophic illness. Document(s) Completed: None Time Spent: 20 minutes
[2019-05-30] MEDS: DILTIAZEM HCL 60 MG TABLET PO SCH ×3 (00:07→11:38)
[2019-05-30 06:38] LABS: BLOOD UREA NITROGEN 17 mg/dL (7-20); CALCIUM 8.9 mg/dL (8.4-10.2); GLUCOSE 85 mg/dL (75-110); POTASSIUM 4.7 mmol/L (3.6-5.0)
[2019-05-30 06:44] LABS: ANION GAP 6 (5-19); CARBON DIOXIDE 27 mmol/L (22-30); CHLORIDE 106 mmol/L (98-107)
--- NOTE | 2019-05-30 08:14 | EKG REPORT ---
SEVERITY:- NORMAL ECG - SINUS RHYTHM : Confirmed by: Alyssa Madsen MD 30-May-2019 08:13:26
[2019-05-30] MEDS: FAMOTIDINE 20 MG TABLET PO SCH (09:30)
[2019-05-30] MEDS: TRAMADOL HCL 50 MG TABLET PO SCH ×2 (09:30→13:44)
[2019-05-30] MEDS: PREGABALIN 25 MG CAPSULE PO SCH ×2 (09:30→13:44)
[2019-05-30] MEDS: ENOXAPARIN SODIUM INJ 40 MG/0.4 ML DISP.SYRIN SUBCUT SCH (09:31)
[2019-05-30] MEDS ORDERED: MELOXICAM 7.5 MG TABLET PO SCH (10:00)
[2019-05-30] MEDS ORDERED: ENOXAPARIN SODIUM INJ 40 MG/0.4 ML DISP.SYRIN SUBCUT SCH (10:00)
[2019-05-30] MEDS ORDERED: LISINOPRIL 10 MG TABLET PO SCH (10:00)
[2019-05-30] MEDS ORDERED: MORPHINE SULFATE 10 MG/ML INJ IV ONE (11:22)
[2019-05-30 12:18] LABS: FREE T3 3.98 pg/mL (2.77-5.27); FREE T4 (FREE THYROXINE) 1.17 ng/dL (0.78-2.19)
[2019-05-30 13:00] VITALS: BP 145/78
[2019-05-31] MEDS ORDERED: LISINOPRIL 10 MG TABLET PO SCH (10:00)
--- NOTE | 2019-05-31 18:35 | PDOC DISCHARGE SUMMARY ---
General - Admit/Disc Date/PCP Admission Date/Primary Care Provider: 05/29/19 13:50 DORY RODRIGUEZ, DO Discharge Date: 05/31/19 - Discharge Diagnosis (1) SVT (supraventricular tachycardia) Is this a current diagnosis for this admission?: Yes (2) Hypercholesterolemia Is this a current diagnosis for this admission?: Yes (3) Hypertension Is this a current diagnosis for this admission?: Yes - Additional Information Resuscitation Status: Full Code Discharge Diet: As Tolerated Discharge Activity: Activity As Tolerated Prescriptions: Diltiazem HCl [Cardizem Cd 120 mg Capsule] 1 cap.sr PO DAILY #30 cap.sr Lisinopril [Prinivil 10 mg Tablet] 20 mg PO DAILY #60 tablet Home Medications: Atorvastatin Calcium [Lipitor 20 mg Tablet] 20 mg PO QHS 05/29/19 Cyclobenzaprine HCl [Flexeril 10 mg Tablet] 10 mg PO TIDP PRN 05/29/19 Meloxicam [Mobic] 15 mg PO DAILY 05/29/19 Pregabalin [Lyrica 50 mg Capsule] 50 mg PO Q8 05/29/19 Tramadol HCl [Ultram 50 mg Tablet] 50 mg PO Q8HP PRN 05/29/19 Trazodone HCl [Desyrel 50 mg Tablet] 50 mg PO QHS 05/29/19 Diltiazem HCl [Cardizem Cd 120 mg Capsule] 1 cap.sr PO DAILY #30 cap.sr 05/30/19 Lisinopril [Prinivil 10 mg Tablet] 20 mg PO DAILY #60 tablet 05/30/19 History of Present Illness History of Present Illness: Admitting hospitalist's H&P: MICHOACANO ARAUJO is a 59 year old male with a history of hypertension and hyperlipidemia as well as one previous episode of SVT many years ago presents with lightheadedness, dizziness and rapid heart rate. The patient was having his coffee and all of a sudden felt lightheaded. He could feel that his heart rate was increased. He presented to the emergency department. On telemetry his heart rate was found to be 250. He received 1 dose of adenosine and 2 intravenous doses of diltiazem. This has slowed his heart rate During this encounter his heart rate is still between 100 and 125. He is extremely anxious. He was referred to the hospital service for admission. He is not happy about the admission. It does seem like he is under some stress. Hospital Course Hospital Course: Patient was admitted due to SBT. He did promptly converted to normal sinus rhythm with no acute issues overnight. He was started on p.o. Cardizem. He is asymptomatic and denies any chest pain or shortness of breath. We discussed in length about about pursuing inpatient stress testing. Patient insist to just have this done as outpatient. He will be given close follow-up with cardiology to get a stress testing done. Thyroid panel was also checked. Recommendation at this time is to repeat his thyroid panel in 2 to 3 weeks with PCP. He ambulated the hallway on room air with no acute issues and his heart rate and did not have any desaturation. Physical Exam Vital Signs: Temp Pulse Resp BP Pulse Ox 98.7 F 86 17 145/78 H 96 05/30/19 12:59 05/30/19 12:59 05/30/19 12:59 05/30/19 12:59 05/30/19 12:59 Intake & Output 05/30/19 05/31/19 06/01/19 06:59 06:59 06:59 Intake Total 1000 594 Output Total 400 Balance 1000 194 Weight 269 lb 2.951 oz General appearance: PRESENT: no acute distress, well-developed, well-nourished Head exam: PRESENT: atraumatic, normocephalic Eye exam: PRESENT: conjunctiva pink, EOMI, PERRLA. ABSENT: scleral icterus Ear exam: PRESENT: normal external ear exam Neck exam: ABSENT: carotid bruit, JVD, lymphadenopathy, thyromegaly Respiratory exam: PRESENT: clear to auscultation aleja. ABSENT: rales, rhonchi, wheezes Cardiovascular exam: PRESENT: RRR. ABSENT: diastolic murmur, rubs, systolic murmur Pulses: PRESENT: normal dorsalis pedis pul GI/Abdominal exam: PRESENT: normal bowel sounds, soft. ABSENT: distended, guarding, mass, organolmegaly, rebound, tenderness Rectal exam: PRESENT: deferred Extremities exam: PRESENT: full ROM. ABSENT: calf tenderness, clubbing, pedal edema Neurological exam: PRESENT: alert, awake, oriented to person, oriented to place, oriented to time, oriented to situation, CN II-XII grossly intact. ABSENT: motor sensory deficit Results Laboratory Results: 05/29/19 09:50 05/30/19 05:52 05/29/19 05/29/19 05/29/19 09:50 09:50 13:20 Creatine Kinase 115 CK-MB (CK-2) 2.00 Troponin I < 0.012 0.071 05/29/19 05/30/19 19:30 11:41 Creatine Kinase CK-MB (CK-2) Troponin I 0.108 0.030 Impressions: Chest X-Ray 05/29/19 09:53 IMPRESSION: STABLE APPEARANCE OF THE CHEST. SUPPORT DEVICES UNCHANGED. Qualifiers - * PATIENT BEING DISCHARGED WITH ANY OF THE FOLLOWING DIAGNOSIS: No Acute Heart Failure - Is this a Heart Failure Patient?: No
== END 2019-05-30 15:02 | disposition home or self-care (01) ==
LOC: ER 09:33 → EH 13:50 → 4N 17:39
PROVIDERS: ADMIT Hospitalist; ATTEND Hospitalist
DX: I47.1 Supraventricular tachycardia (principal); E78.00 Pure hypercholesterolemia, unspecified; I10 Essential (primary) hypertension; R60.0 Localized edema; F41.9 Anxiety disorder, unspecified; R35.1 Nocturia; G89.29 Other chronic pain; M54.5 Low back pain; M19.90 Unspecified osteoarthritis, unspecified site; M25.519 Pain in unspecified shoulder; Z87.11 Personal history of peptic ulcer disease; H91.8X1 Other specified hearing loss, right ear; Z87.891 Personal history of nicotine dependence; Z82.49 Family history of ischemic heart disease and other diseases of the circulatory system; Z98.1 Arthrodesis status; Z79.1 Long term (current) use of non-steroidal anti-inflammatories (NSAID); Z79.899 Other long term (current) drug therapy
CPT/HCPCS: 93005 ×2; 96376; 99285; 96361; 96374; 96375; 36415 ×2; 84439; 82553; 82550; 83735; 84443; 85025; 80048; 80053; 84484 ×2; 84481; 71045; 93010 ×2; G0378 ×3; J3490 ×7; J1650 ×2; J2060; J7030